=== PATIENT | male | born 1990 | race Caucasian/White ===

== ENCOUNTER 2018-02-05 02:41 | Emergency (ER) | payer SELFPAY ==
[~2018-02-05] VITALS: Ht 172.7 cm; Wt 70.0 kg
[2018-02-05 02:46] VITALS: Ht 172.7 cm; Wt 70.0 kg
[2018-02-05 03:44] LABS: PLATELET COUNT 204 x10^3mcL (130-400); RED CELL DISTRIBUTION WIDTH 13.2 % (11.5-14.5)
[2018-02-05 03:45] LABS: BASOPHIL % 0 % (0-2)
[2018-02-05 03:47] LABS: CALCIUM 8.4 mg/dL (8.5-10.1); CHLORIDE SERUM 98 mmol/L (98-107); CREATININE SERUM 1.1 mg/dL (0.7-1.3); GFR1 > 60 mL/min; GLUCOSE SERUM 123 mg/dL (74-106); POTASSIUM SERUM 3.6 mmol/L (3.5-5.1); SODIUM SERUM 138 mmol/L (136-145)
[2018-02-05 03:51] LABS: ALBUMIN 3.8 g/dL (3.4-5.0); ALKALINE PHOSPHATASE 100 U/L (46-116); ALT/SGPT 121 U/L (16-63); AMPHETAMINE QUAL UR NONE DETECTED (See below); AST/SGOT 193 U/L (15-37); BILIRUBIN TOTAL 1.01 mg/dL (0.20-1.00); LIPASE 116 IU/L (73-393)
[2018-02-05 05:19] VITALS: BP 139/84
== END 2018-02-05 05:19 | disposition home or self-care (01) ==
LOC: ED 02:41 → EDBD 02:41 → ED 02:41
PROVIDERS: Emergency Medicine
DX: R56.9 Unspecified convulsions (principal); R11.10 Vomiting, unspecified; R19.7 Diarrhea, unspecified; F17.210 Nicotine dependence, cigarettes, uncomplicated
CPT/HCPCS: 90715; G0480; J2060; J7030